=== PATIENT | male | born 1945 | race American Indian/Alaskan Native ===

== ENCOUNTER 2018-09-21 23:16 | Emergency (ER) | payer MEDICARE ==
[2018-09-21] MEDS ORDERED: SOLU-Medrol IV ONE (23:56)
[2018-09-21] MEDS ORDERED: PEPCID IV ONE (23:56)
[2018-09-21] MEDS ORDERED: BENADRYL IV ONE (23:56)
--- NOTE | 2018-09-22 | Emergency Department Report ---
ED Allergic Reaction HPI - General Chief complaint: Allergic Reaction Stated complaint: POSS REACTION TO MEDICATION Time Seen by Provider: 09/21/18 23:51 Source: patient Mode of arrival: Ambulatory Limitations: No Limitations - History of Present Illness Initial Comments: Patient is 72 years old male with no significant past medical history. Patient presented to the ER complaining of generalized itching and skin rash that started this evening. Patient stated that he started taking doxycycline which was prescribed by his primary care physician for cellulitis in his left hand. Patient stated that he had mild shortness of breath but that's improving significantly. Patient denied any difficulty swallowing or difficulty in breathing. He also denied any chest pain, abdominal pain, nausea or vomiting. MD Complaint: allergic reaction, hives Exposure: medication Symptoms: rash, itching, difficulty breathing Severity: moderate Treatment Prior to Arrival: none - Related Data Allergies Allergy/AdvReac Type Severity Reaction Status Date / Time doxycycline Allergy Hives Verified 09/21/18 23:20 ED Review of Systems ROS: Stated complaint: POSS REACTION TO MEDICATION Other details as noted in HPI Comment: All other systems reviewed and negative Constitutional: denies: chills, fever Respiratory: shortness of breath. denies: cough, orthopnea, SOB with exertion, SOB at rest, wheezing Cardiovascular: denies: chest pain, palpitations, dyspnea on exertion Gastrointestinal: denies: abdominal pain, nausea, vomiting, diarrhea, constipation, hematemesis, hematochezia Musculoskeletal: denies: back pain Skin: rash Neurological: denies: headache, weakness ED Past Medical Hx - Past Medical History Previous Medical History?: No - Surgical History Past Surgical History?: No - Social History Smoking Status: Never Smoker ED Physical Exam - General Limitations: No Limitations General appearance: alert, in no apparent distress - Head Head exam: Present: atraumatic, normocephalic, normal inspection - Eye Eye exam: Present: normal appearance, PERRL - ENT ENT exam: Present: normal exam, normal orophraynx, mucous membranes moist - Neck Neck exam: Present: normal inspection, full ROM. Absent: tenderness, meningismus, lymphadenopathy, thyromegaly - Respiratory Respiratory exam: Present: normal lung sounds bilaterally - Cardiovascular Cardiovascular Exam: Present: regular rate, normal rhythm, normal heart sounds - GI/Abdominal GI/Abdominal exam: Present: soft, normal bowel sounds. Absent: distended, tenderness, guarding, rebound, rigid, organomegaly, mass, bruit, pulsatile mass, hernia - Extremities Exam Extremities exam: Present: normal inspection, full ROM, normal capillary refill - Back Exam Back exam: Present: normal inspection, full ROM. Absent: tenderness, CVA tenderness (R), CVA tenderness (L), muscle spasm, paraspinal tenderness, vertebral tenderness - Neurological Exam Neurological exam: Present: alert, oriented X3, CN II-XII intact, normal gait, reflexes normal - Skin Skin exam: Present: intact, rash, urticaria ED Course Vital Signs 09/21/18 09/21/18 09/22/18 23:19 23:56 00:30 Temperature 97.3 F L 98 F Pulse Rate 99 H 71 Respiratory 18 16 16 Rate Blood Pressure 136/71 Blood Pressure 125/74 [Right] O2 Sat by Pulse 95 98 98 Oximetry ED Medical Decision Making - Lab Data Result diagrams: 09/22/18 00:20 09/22/18 00:20 - Medical Decision Making Patient is 72 years old male with no significant past medical history. Patient presented to the ER complaining of generalized itching and skin rash that started this evening. Patient stated that he started taking doxycycline which was prescribed by his primary care physician for cellulitis in his left hand. Patient stated that he had mild shortness of breath but that's improving significantly. Patient denied any difficulty swallowing or difficulty in breathing. He also denied any chest pain, abdominal pain, nausea or vomiting. Patient received Benadryl, Solu-Medrol and Pepcid. Patient stated that he is feeling much better. Rash is completely resolved. No shortness of breath, difficulty breathing or difficulty swallowing. Patient advised to stop doxycycline and I replaced his antibiotic with Keflex. Patient advised to follow-up with his primary care physician in the next 2-3 days and to return to the ER if symptoms are not improved. Critical care attestation.: If time is entered above; I have spent that time in minutes in the direct care of this critically ill patient, excluding procedure time. ED Disposition Clinical Impression: Allergic reaction caused by a drug Disposition: DC-01 TO HOME OR SELFCARE Is pt being admited?: No Condition: Stable Instructions: Antibiotic Medication Allergy (ED) Referrals: CORBY MCGARRY MD [Primary Care Provider] - 3-5 Days
[2018-09-22 00:42] LABS: Basophils % (Auto) 0.6 % (0.0-1.8); Eosinophils # (Auto) 0.4 K/mm3 (0.0-0.4); Hematocrit 41.3 % (35.5-45.6); Hemoglobin 14.2 gm/dl (11.8-15.2); Lymphocytes # (Auto) 0.8 K/mm3 (1.2-5.4); Lymphocytes % (Auto) 13.3 % (13.4-35.0); Mean Corpuscular HGB Conc 34 % (32-34); Mean Corpuscular Volume 96 fl (84-94); Monocytes # (Auto) 0.6 K/mm3 (0.0-0.8); Monocytes % (Auto) 10.3 % (0.0-7.3); Red Blood Count 4.31 M/mm3 (3.65-5.03); Red Cell Distribution Width 14.3 % (13.2-15.2)
[2018-09-22 00:54] LABS: Platelet Count 99 K/mm3 (140-440)
[2018-09-22 00:56] LABS: BUN/Creatinine Ratio 30; Blood Urea Nitrogen 24 mg/dL (9-20); Calcium 8.8 mg/dL (8.4-10.2); Hemolysis Index 157
[2018-09-22 02:54] VITALS: BP 128/72
== END 2018-09-22 03:05 | disposition home or self-care (01) ==
LOC: ED 23:16
DX: L03.114 Cellulitis of left upper limb (principal); T36.4X5A Adverse effect of tetracyclines, initial encounter; Y92.89 Other specified places as the place of occurrence of the external cause; Z88.1 Allergy status to other antibiotic agents
CPT/HCPCS: 36415; 80048; 85025; 96374; 96375; 99283; J1200; J2930